=== PATIENT | female | born 1955 | race Caucasian/White ===

== ENCOUNTER 2017-10-20 13:11 | Emergency (ER) | payer OTHER ==
[~2017-10-20] VITALS: Ht 177.8 cm; Wt 101.6 kg
--- NOTE | 2017-10-20 14:24 | ED NECK/BACK PAIN COMPLAINT ---
History of Present Illness General Chief Complaint: Low Back Pain/Injury Stated Complaint: BACK PAIN, TOP LEFT Source: patient Exam Limitations: no limitations Vital Signs & Intake/Output Vital Signs & Intake/Output Vital Signs Date Time Temp Pulse Resp B/P B/P Pulse O2 O2 Flow FiO2 Mean Ox Delivery Rate 10/20 1317 97.5 70 18 162/83 99 Room Air Allergies Coded Allergies: aspirin (UNKNOWN 10/20/17) penicillin G (UNKNOWN 10/20/17) prochlorperazine (UNKNOWN 10/20/17) Reconcile Medications Methocarbamol (Robaxin) 500 MG TABLET 1 TAB PO TID PRN MUSCLE SPASMS Naproxen (Naprosyn) 500 MG TABLET 1 TAB PO BID PRN PAIN Triage Note: MID BACK PAIN THAT STARTED ONE HOUR AGO. URINE CUP GIVEN TO PT Triage Nurses Notes Reviewed? yes Onset: Abrupt Duration: hour(s): Timing: no prior history Quality/Severity: mild Location: lumbar spine, paraspinous muscles Radiation: none Context: AFTER STANDING Method of Injury: unknown Modifying Factors: immobilization, movement HPI: Patient is a 61-year-old female presenting to the emergency department a chief complaint of left mid and lower back pain that started suddenly after ending up after being seated for a while this morning. History of back pain in the past but nothing specific. Pain is achy and throbbing currently. 10. Intermittent spasming brings up the pain to 6 out of 10. Denies any urinary incontinence or retention. Denies any hematuria. No history kidney stones. Denies any nausea vomiting fevers or chills. Took Motrin this morning around 9 AM with some relief. She is going on vacation tomorrow and is concerned because she has to be in a car for several hours driving to [place]. Denies any recent heavy lifting. No numbness or tingling. (Daniela Fuller) Past History Travel History Traveled to [place] past 21 day No Medical History Any Pertinent Medical History? see below for history Neurological: migraine Cardiovascular: hyperlipidemia Surgical History Surgical History: non-contributory Psychosocial History What is your primary language Macedonian Tobacco Use: Never used ETOH Use: occasional use Illicit Drug Use: denies illicit drug use Family History Hx Contributory? No (Daniela Fuller) Review of Systems Review of Systems Constitutional: Reports: no symptoms. Comments Review of systems: See HPI, All other systems negative. Constitutional, no chills fever or weight loss HEENT: No visual changes no sore throat no congestion Cardiovascular: No chest pain ,palpitation , orthopnea or ankle swelling Skin, no jaundice no rashes Respiratory: No dyspnea cough sputum or hemoptysis GI: No nausea no vomiting : No dysuria No hematuria Muscle skeletal: no neck pain, Neurologic: No numbness no confusion Psych: No stress anxiety or depression,. Heme/endocrine: No bruising no bleeding no polyuria or polydipsia Immunology: No splenectomy or history of AIDS (Trey LAM,Daniela) Physical Exam Physical Exam General Appearance: well developed/nourished, no apparent distress, alert, awake , comfortable Neck: normal inspection, supple, full range of motion Comments: Well-developed well-nourished person in no acute distress HEENT: NORMAL INSPECTION Neck:FULL ROM Back: Mild tenderness to palpation over the left mid and lower back. Near full range of motion and somewhat limited secondary to pain. Negative modified straight leg raise bilaterally. Cardiovascular: Regular rate and rhythms no murmurs rubs or gallops, normal JVP Respiratory: Chest nontender. No respiratory distress.breath sounds clear to auscultation bilaterally Abdomen: Soft, nontender nondistended, no appreciable organomegaly. Normal bowel sounds. No ascites, no rebound or guarding. Extremity: No edema Neuro: Alert oriented x3, motor sensory normal Skin: No appreciable rash on exposed skin, skin is warm and dry. Psych: Mood and affect is normal, memory and judgment is normal. Core Measures CVA/TIA Diagnosis: No (Daniela Fuller) Progress Differential Diagnosis: URETEROLITHIASIS, MUSCLE STRAIN, HYDRONEPHROSIS, PYELONEPHRITIS, uti, SHINGLES Plan of Care: Orders Procedure Date/time Status URINALYSIS 10/20 1319 Complete Laboratory Tests 10/20/17 1324: Urine Color YEL, Urine Clarity CLEAR, Urine pH 6.5, Ur Specific [place] 1.015, Urine Protein NEG, Urine Ketones NEG, Urine Nitrite NEG, Urine Bilirubin NEG, Urine Urobilinogen 0.2, Ur Leukocyte Esterase NEG, Ur Microscopic EXAM NOT REQUIRED, Urine Hemoglobin NEG, Urine Glucose NEG Diagnostic Imaging: Viewed by Me: Ultrasound. Discussed w/RAD: Ultrasound. Radiology Impression: PATIENT: NELL VERDUZCO PRESENT AGE: 61 PATIENT ACCOUNT NO: [id number] : 56 LOCATION: [facility] ORDERING PHYSICIAN: Daniela LAM SERVICE DATE: 10/20/17 EXAM TYPE: US - US-RENAL/KIDNEY EXAMINATION: US RETROPERITONEAL COMPLETE (RENAL) CLINICAL INFORMATION: Flank pain. COMPARISON: None TECHNIQUE: Real-time imaging of the kidneys and bladder. FINDINGS: RIGHT KIDNEY: 10.5 x 4.8 x 6.1 cm (SAG x AP x TRV ). The kidney is normal in size, contour, and echogenicity. Renal cortical thickness is normal. No calculi or focal parenchymal lesions. No hydronephrosis. LEFT KIDNEY: 10.4 x 5.8 x 5.7 cm (SAG x AP x TRV). The kidney is normal in size, contour, and echogenicity. Renal cortical thickness is normal. No calculi or focal parenchymal lesions. No hydronephrosis. BLADDER: Well-distended and normal. Neither ureteral jets are demonstrated. Prevoid bladder volume is 207 mL. Postvoid bladder volume is 0 mL. IMPRESSION: No stones or obstructive uropathy.. DICTATED BY: Varinder Armstrong MD DATE/TIME DICTATED:10/20/171600 SMALL STOCK FACER:DOMINGUEZ DATE/TIME TRANSCRIBED:10/20/171600 CONFIDENTIAL, DO NOT COPY WITHOUT APPROPRIATE AUTHORIZATION. <Electronically signed in Other Vendor System> SIGNED BY: Varinder Armstrong MD 10/20/171605, PATIENT: NELL VERDUZCO PRESENT AGE: 61 PATIENT ACCOUNT NO: [id number] : 56 LOCATION: [facility] ORDERING PHYSICIAN: Daniela LAM SERVICE DATE: 10/20/17 EXAM TYPE: US - US-RENAL/KIDNEY EXAMINATION: US RETROPERITONEAL COMPLETE (RENAL) CLINICAL INFORMATION: Flank pain. COMPARISON: None TECHNIQUE: Real-time imaging of the kidneys and bladder. FINDINGS: RIGHT KIDNEY: 10.5 x 4.8 x 6.1 cm (SAG x AP x TRV). The kidney is normal in size, contour, and echogenicity. Renal cortical thickness is normal. No calculi or focal parenchymal lesions. No hydronephrosis. LEFT KIDNEY: 10.4 x 5.8 x 5.7 cm ( SAG x AP x TRV). The kidney is normal in size, contour, and echogenicity. Renal cortical thickness is normal. No calculi or focal parenchymal lesions. No hydronephrosis. BLADDER: Well-distended and normal. Neither ureteral jets are demonstrated. Prevoid bladder volume is 207 mL. Postvoid bladder volume is 0 mL. IMPRESSION: No stones or obstructive uropathy.. DICTATED BY: Varinder Armstrong MD DATE/ TIME DICTATED:10/20/171600 SMALL STOCK FACER:DOMINGUEZ DATE/TIME TRANSCRIBED: 10/20/171600 CONFIDENTIAL, DO NOT COPY WITHOUT APPROPRIATE AUTHORIZATION. < Electronically signed in Other Vendor System> SIGNED BY: Varinder Armstrong MD 1605 (Daniela Fuller) Departure Departure Time of Disposition: 1607 Disposition: HOME OR SELF CARE Condition: Stable Clinical Impression Primary Impression: Back pain Qualifiers: Back pain location: low back pain Chronicity: unspecified Back pain laterality: left Sciatica presence: without sciatica Qualified Code: M54.5 - Low back pain Referrals: Zeke Duffy MD (PCP/Family) Additional Instructions: Follow-up with your primary care physician in the next 5-7 days, call to make an appointment. Take anti-inflammatories and muscle relaxer as directed. Avoid heavy lifting and sudden movements is ischemic pain worse. Increase fluids. Keep an eye on skin, seek medical attention if he develop any rashes in the area of pain. Departure Forms: Customer Survey General Discharge Information Prescriptions: Current Visit Scripts Naproxen (Naprosyn) 1 TAB PO BID PRN PAIN #20 TAB Methocarbamol (Robaxin) 1 TAB PO TID PRN MUSCLE SPASMS #15 TAB (Daniela Fuller) PA/ASSISTANT NEWS DIRECTOR Co-Sign Statement Statement: ED Attending supervision documentation- [] I saw and evaluated the patient. I have also reviewed all the pertinent lab results and diagnostic results. I agree with the findings and the plan of care as documented in the PA's/ASSISTANT NEWS DIRECTOR's documentation. [x] I have reviewed the ED Record and agree with the PA's/ASSISTANT NEWS DIRECTOR's documentation. [] Additions or exceptions (if any) to the PAs/ASSISTANT NEWS DIRECTOR's note and plan are summarized below: [] (Edilberto Clark DO
--- NOTE | 2017-10-20 16:06 | ULTRASOUND REPORT ---
EXAMINATION: US RETROPERITONEAL COMPLETE (RENAL) CLINICAL INFORMATION: Flank pain. COMPARISON: None TECHNIQUE: Real-time imaging of the kidneys and bladder. FINDINGS: RIGHT KIDNEY: 10.5 x 4.8 x 6.1 cm (SAG x AP x TRV). The kidney is normal in size, contour, and echogenicity. Renal cortical thickness is normal. No calculi or focal parenchymal lesions. No hydronephrosis. LEFT KIDNEY: 10.4 x 5.8 x 5.7 cm (SAG x AP x TRV). The kidney is normal in size, contour, and echogenicity. Renal cortical thickness is normal. No calculi or focal parenchymal lesions. No hydronephrosis. BLADDER: Well-distended and normal. Neither ureteral jets are demonstrated. Prevoid bladder volume is 207 mL. Postvoid bladder volume is 0 mL. IMPRESSION: No stones or obstructive uropathy..
[2017-10-20] MEDS ORDERED: ROBAXIN500 M1 PO (16:13)
[2017-10-20] MEDS ORDERED: NAPROSYN500 M1 PO (16:13)
[2017-10-20 17:52] VITALS: BP 144/78
== END 2017-10-20 17:53 ==
LOC: ERH 13:11
DX: M54.5 Low back pain (principal)
CPT/HCPCS: 76775; 81003; J1885